=== PATIENT | male | born 1965 ===

== ENCOUNTER 2018-10-03 13:43 | Inpatient (IN) | payer BC ==
[~2018-10-03] VITALS: Ht 213.4 cm; Wt 122.5 kg
--- OUTSIDE RECORDS SUMMARY | 2018-10-03 20:27 | XMS REPORT ---
Author Author [facility] Address Unknown Phone Unavailable Care Team Providers Care Graphic Designer Name Role Phone JANINA CARRILLO Unavailable Unavailable Cristian RIVERS Unavailable Unavailable Cesar MORA Unavailable Unavailable Problems This patient has no known problems. Allergies, Adverse Reactions, Alerts This patient has no known allergies or adverse reactions. Medications This patient has no known medications. Results Test Description Test Time Test Comments Text Results Atomic Results Result Comments CHEST XRAY LINE PLACEMENT 2018-04-30 17:34:00 [place] [address] Patient Name: JOCY CARRANZA JR MR #: [id number] : 1965 Age/Sex: 52/M Req #: [id number] Adm Physician: Ordered by: JANINA CARRILLO MD Report #: [id number] Location: DX Room/Bed: Procedure: [id number] DX/CHEST XRAY LINE PLACEMENT Exam Date: 04/30/18 Exam Time: 1709 REPORT STATUS: Signed EXAMINATION: CHEST XRAY LINE PLACEMENT INDICATION: Line placement. COMPARISON: None FINDINGS: AP view TUBES and LINES: Interval placement of left-sided PICC with tip at the cavoatrial junction. LUNGS/PLEURA: The lungs are clear. No pleural effusion or pneumothorax. HEART AND MEDIASTINUM: Borderline enlarged cardiac silhouette. BONES AND SOFT TISSUES: No acute osseous lesion. Soft tissues are unremarkable. UPPER ABDOMEN: No free air under the diaphragm. IMPRESSION: No acute thoracic abnormality. Left-sided PICC at the cavoatrial junction. Signed by: Maco Starr MD on 04/30/2018 5:35 PM Dictated By: SIMONA STARR MD 34 Transcribed By: RONDA on 04/30/181734 COPY TO: JANINA CARRILLO MD CHEST 2 VIEWS 2017-11-28 10:02:00 [place] [address] Patient Name: JOCY CARRANZA MR #: [id number] : 1965 Age/Sex: 51/M Req #: [id number] Adm Physician: Ordered by: DONOVAN RIVERS DPM Report #: [id number] Location: [facility] Room/Bed: Procedure: [id number] DX/CHEST 2 VIEWS Exam Date: Exam Time: REPORT STATUS: Signed PROCEDURE: Frontal and lateral views of the chest. COMPARISON: Chest radiograph 09/22/17. INDICATIONS: PRE OP HYPERBARIC CHAMBER TREATMENT FINDINGS: Lines/tubes: Left sided PICC Terminates in the expected location of the cavoatrial junction. Lungs: The lungs are well inflated and clear. There is no evidence of pneumonia or pulmonary edema. Pleura: There is no pleural effusion or pneumothorax. Heart and medias tinum: The cardiomediastinal silhouette is unremarkable. Bones: No acute bony abnormality. IMPRESSION: No acute radiographic abnormality. Dictated by: ISRAEL DEAN M.D. on 11/28/2017 at 10:01 Electronically approved by: ISRAEL DEAN M.D. on 11/28/2017 at 10:01 Dictated By: ISRAEL DEAN MD 1002 Transcribed By: LAKESHA on 11/28/17 1002 COPY TO: DONOVAN RIVERS DPCarmina MRI FOOT RIGHT WOW 2017-11-22 14:58:00 [facility] [address] [address] Patient Name: JOCY CARRANZA JR MR #: [id number] : 1965 Age/Sex: 51/M Req #: [id number] Adm Physician: Ordered by: JANINA CARRILLO MD Report #: [id number] Location: MRI Room/Bed: Procedure: [id number] MRI/MRI FOOT RIGHT WOW Exam Date: Exam Time: REPORT STATUS: Signed MRI of the right foot with and without contrast. History: Osteomyelitis. Lateral foot pain. Infection. Decreased range of motion. Technique: Multiplanar multisequence MRI of the foot after the administration of 20 cc intra-articular gadolinium contrast material. Comparison: September 22, 2017 Findings: Soft tissue ulceration and postsurgical change of the lateral forefoot. Osteomyelitis of the remaining fifth metatarsal. Additionally, there is abnormal bone marrow edema involving the fifth toe best seen on series 6 image 9 through 12 worrisome for osteomyelitis. Mild bone marrow edema in the cuboid bone, proximal and distal fourth metatarsal could be stress related. Prior amputation across the second through fourth metatarsophalangeal joints. Small soft tissue phlegmon at the lateral aspect of the foot at the level of the distal residual fifth metatarsal Diffuse soft tissue edema and atrophy of the musculature. IMPRESSION: Osteomyelitis of the remaining portion of the fifth metatarsal and fifth toe. Bone marrow edema in the cuboid bone, proximal and distal fourth metatarsal could be stress related. Signed by: Dr. Robby Carrera M.D. on 3:07 PM Dictated By: ROBBY CARRERA MD, MD 06 Transcribed By: RONDA on 11/22/171506 COPY TO: JANINA CARRILLO MD MRI FOOT RIGHT WOW 2017-09-22 12:36:00 [place] [address] Patient Name: JOCY CARRANZA MR #: [id number] : 1965 Age/Sex: 51/M Req #: [id number] [facility] Physician: BIANCA MORA MD Ordered by: JANINA CARRILLO MD Report #: [id number] Location: [facility] Room/Bed: [place] [address] Procedure: [id number] MRI/MRI FOOT RIGHT WOW Exam Date: Exam Time: REPORT STATUS: Signed TECHNIQUE: Magnetic resonance imaging of the RIGHT foot was performed without and with injected contrast. 20 mL of MultiHance HISTORY: Pain, evaluate for infection COMPARISON: None available. DISCUSSION: Soft tissue ulceration of the lateral forefoot. Osteomyelitis of the fifth toe involving the phalanges and metatarsal. Probable prior amputation of the fifth metacarpal head. Probable osteomyelitis involving the lateral cuboid. Prior amputation across the second through fourth metatarsophalangeal joints. Small soft tissue abscess around the fifth metatarsal short axis image 11. Diffuse soft tissue edema and atrophy of the musculature. IMPRESSION: Osteomyelitis of the fifth toe involving the metatarsal and phalanges. Probable osteomyelitis of the late ral cuboid. Signed by: Dr. Derrick Reeves M.D. on 09/22/2017 12:40 PM Dictated By: DERRICK REEVES MD 39 Transcribed By: RONDA on 09/22/171239 COPY TO: JANINA CARRILLO MD CHEST XRAY LINE PLACEMENT 2017-09-22 01:58:00 [facility] [address] [place] [address] Patient Name: JOCY CARRANZA MR #: [id number] : 1965 Age/Sex: 51/M Req #: [id number] Adm Physician: BIANCA MORA MD Ordered by: JANINA CARRILLO MD Report #: [id number] Location: [facility] Room/Bed: [place] [address] Procedure: [id number] DX/CHEST XRAY LINE PLACEMENT Exam Date: 09/22/17 Exam Time: 0040 REPORT STATUS: Signed EXAM: CHEST XRAY LINE PLACEMENT, AP 1 view INDICATION: Line placement COMPARISON: PA and lateral view of the chest October 01, 2017 at 2139 hours FINDINGS: LINES/TUBES: Interval placement of left approach PICC with tip terminating at the expected location of the atriocaval junction. LUNGS: No consolidations or edema. PLEURA: No effusions or pneumothorax. HEART AND MEDIASTINUM: Normal size and contour. BONES AND SOFT TISSUES: No acute findings. IMPRESSION: Interval placement of left approach PICC with tip terminating at the expected location of the atriocaval junction. Signed by: Dr. Matias Mcmillan M.D. on 09/22/2017 1:59 AM Dictated By: MATIAS MCMILLAN MD 8 Transcribed By: RONDA on 09/22/17158 COPY TO: JANINA CARRILLO MD CHEST 2 VIEWS 2017-09-21 22:11:00 [facility] [address] [address] Patient Name: JOCY CARRANZA MR #: [id number] : 1965 Age/Sex: 51/M Req #: [id number] Adm Physician: BIANCA MORA MD Ordered by: DONOVAN RIVERS DPM Report #: [id number] Location: [facility] Room/Bed: [place] [address] Procedure: [id number] DX/CHEST 2 VIEWS Exam Date: 09/21/17 Exam Time: 2139 REPORT STATUS: Signed EXAM: CHEST 2 VIEWS, PA and lateral INDICATION: Foot ulcers COMPARISON: None FINDINGS: LINES/TUBES: None LUNGS: No consolidations or edema. PLEURA: No effusions or pneumothorax. HEART AND MEDIASTINUM: Normal size and contour. BONES AND SOFT TISSUES: No acute findings. IMPRESSION: No acute thoracic abnormality. Signed by: Dr. Matias Mcmillan M.D. on 09/21/2017 10:12 PM Dictated By: MATIAS MCMILLAN MD 11 Transcribed By: RONDA on 09/21/172211 COPY TO: DONOVAN RIVERS DPM FOOT RIGHT COMPLETE 2017-09-21 22:09:00 [place] [address] Patient Name: JOCY CARRANZA MR #: [id number] : 1965 Age/Sex: 51/M Req #: [id number] Adm Physician: BIANCA MORA MD Ordered by: DONOVAN RIVERSM Report #: [id number] Location: [facility] Room/Bed: [place] [address] Procedure: [id number] DX/FOOT RIGHT COMPLETE Exam Date: 09/21/17 Exam Time: 2139 REPORT STATUS: Signed EXAM: FOOT RIGHT COMPLETE, AP, lateral and oblique INDICATION: Ulcer, lateral aspect COMPARISON: Left foot x-ray July 08, 2017 FINDINGS: BONES: Interval destruction of the head of the fifth digit metatarsal with permeative pattern throughout the residual metatarsal and periosteal reaction. Additional erosion at the base of the fifth digit proximal phalanx. Prior surgical amputation through the second, third and fourth metatarsal interphalangeal joints. JOINTS: No malalignment. SOFT TISSUES: Soft tissue swelling of the forefoot. IMPRESSION: Osteomyelitis involving the fifth metatarsal and base of the fifth proximal phalanx. Signed by: Dr. Matias Mcmillan M.D. on 09/21/2017 10:11 PM Dictated By: MATIAS MCMILLAN MD 10 Transcribed By: RONDA on 09/21/172210 COPY TO: DONOVAN RIVERS DPM FOOT LEFT COMPLETE 2017-09-21 22:07:00 [place] [address] Patient Name: JOCY CARRANZA MR #: [id number] : 1965 Age/Sex: 51/M Req #: [id number] Adm Physician: BIANCA MORA MD Ordered by: DONOVAN RIVERS DPM Report #: [id number] Location: [facility] Room/Bed: [place] [address] Procedure: [id number] DX/FOOT LEFT COMPLETE Exam Date: 09/21/17 Exam Time: 2139 REPORT STATUS: Signed EXAM: FOOT LEFT COMPLETE, AP, lateral and oblique INDICATION: Ulcers, left foot big toe COMPARISON: Left foot x-ray July 08, 2017 FINDINGS: BONES: No acute fractures. Chronic deformity of the second and third digit distal phalanges. JOINTS: No malalignment. SOFT TISSUES: Soft tissue swelling of the first digit and ulcer at the plantar base of the distal interphalangeal joint. IMPRESSION: No radiographic evidence of acute osteomyelitis. Signed by: Dr. Matias Mcmillan M.D. on 09/21/2017 10:09 PM Dictated By: MATIAS MCMILLAN MD 08 Transcribed By: RONDA on 09/21/172208 COPY TO: DONOVAN RIVERS DPM CHEST XRAY LINE PLACEMENT 2017-08-04 18:12:00 [place] [address] Patient Name: JOCY CARRANZA MR #: [id number] : 1965 Age/Sex: 51/M Req #: [id number] Adm Physician: Ordered by: JANINA CARRILLO MD Report #: [id number] Location: DX Room/Bed: Procedure: [id number] DX/CHEST XRAY LINE PLACEMENT Exam Date: Exam Time: REPORT STATUS: Signed PROCEDURE: A single AP view of the chest. COMPARISON: [facility], DX, CHEST XRAY LINE PLACEMENT, 07/07/2017, 21:50. INDICATIONS: picc line placement today FINDINGS: See impression. IMPRESSION: 1. right-sided PICC line has distal tip projecting approximately in the mid SVC. 2. Clear lungs. Mildly prominent cardiac silhouette, which may be partly due to portable AP projection. Pulmonary vasculature is normal. 3. No acute bony abnormalities Alli Jordan M.D. Dictated by: Alli Jordan M.D. on 08/04/2017 at 18:12 Electronically approved by: Alli Jordan M.D. on 08/04/2017 at 18:12 Dictated By: ALLI JORDAN MD 11 Transcribed By: LAKESHA on 08/04/171811 COPY TO: JANINA CARRILLO MD MRI FOOT RIGHT WOW [place] [address] Patient Name: JOCY CARRANZA MR #: [id number] : 1965 Age/Sex: 51/M Req #: [id number] [facility] Physician: BIANCA MORA MD Ordered by: BIANCA MORA MD Report #: [id number] Location: MED/[facility] Room/Bed: [facility] Procedure: [id number] MRI/MRI FOOT RIGHT WOW Exam Date: Exam Time: REPORT STATUS: Signed TECHNIQUE: Magnetic resonance imaging of the RIGHT foot (forefoot) was performed WITH injected contrast, 20 cc of MultiHance. HISTORY: Infection, lateral side, query osteomyelitis COMPARISON: Right foot radiographs July 08, 2017 DISCUSSION: Bone: Status post amputation of the second through fourth digits at the level of the metatarsophalangeal joints. Bone marrow edema involving the distal half of the fifth metatarsal bone and fifth proximal phalanx, most notably the head of the fifth metatarsal bone. Corresponding mild confluent decreased fatty marrow signal involving the head of the fifth metatarsal bone. No acute fracture or osteonecrosis. Joints: No dislocation. Trace nonspecific fifth metatarsophalangeal joint effusion. Soft Tissues: A lateral soft tissue defect, overlying the head of the fifth metatarsal bone. Associated granulation tissue or scarring, without a discrete drainable fluid collection. Prominent regional soft tissue edema. IMPRESSION: 1. Osteomyelitis involving the head of the fifth metatarsal bone. 2. Nonspecific reactive bone marrow edema involving the distal half of the fifth metatarsal bone and fifth proximal phalanx. 3. Trace nonspecific fifth metatarsophalangeal joint effusion. 4. No drainable soft tissue abscess. Signed by: Jia FinnOMissy, M.M.M. on 07/11/2017 7:50 AM Dictated By: DOUGLAS SINHA DO 9 Transcribed By: RONDA on 07/11/17 075 COPY TO: BIANCA MORA MD FOOT LEFT COMPLETE [place] [address] Patient Name: JOCY CARRANZA MR #: [id number] : 1965 Age/Sex: 51/M Req #: [id number] Adm Physician: BIANCA MORA MD Ordered by: VANDANA GABRIEL DPM Report #: [id number] Location: [facility] Room/Bed: [facility] Procedure: [id number] DX/FOOT LEFT COMPLETE Exam Date: 07/08/17 Exam Time: 1754 REPORT STATUS: Signed EXAM: FOOT LEFT COMPLETE, AP, lateral and oblique INDICATION: Osteomyelitis bilateral feet COMPARISON: None FINDINGS: BONES: No acute fractures. Prior amputation through the second and third distal phalanges. JOINTS: No malalignment. SOFT TISSUES: Normal IMPRESSION: No radiographic evidence of osteomyelitis. Signed by: Dr. Matias Mcmillan M.D. on 07/08/2017 8:05 PM Dictated By: MATIAS MCMILLAN MD 04 Transcribed By: RONDA on 07/08/172004 COPY TO: VANDANA GABRIEL DPM FOOT RIGHT COMPLETE [place] [address] Patient Name: JOCY CARRANZA MR #: [id number] : 1965 Age/Sex: 51/M Req #: [id number] Adm Physician: BIANCA MORA MD Ordered by: VANDANA GABRIEL DPCarmina Report #: [id number] Location: [facility] Room/Bed: [facility] Procedure: [id number] DX/FOOT RIGHT COMPLETE Exam Date: 07/08/17 Exam Time: 175 REPORT STATUS: Signed EXAM: FOOT RIGHT COMPLETE, AP, lateral and oblique INDICATION: Osteomyelitis COMPARISON: None FINDINGS: BONES: No acute fractures. Prior amputation of the second, third and fourth metatarsal interphalangeal joints. JOINTS: No malalignment. SOFT TISSUES: Soft tissues on of the foot IMPRESSION: No radiographic evidence of osteomyelitis. Signed by: Dr. Matias Mcmillan M.D. on 07/08/2017 8:06 PM Dictated By: MATIAS MCMILLAN MD 05 Transcribed By: RONDA on 07/08/172005 COPY TO: VANDANA GABRIEL DPCarmina CHEST XRAY LINE PLACEMENT [place] [address] Patient Name: JOCY CARRANZA MR #: [id number] : 1965 Age/Sex: 51/M Req #: [id number] Adm Physician: BIANCA MORA MD Ordered by: BIANCA MORA MD Report #: [id number] Location: [facility] Room/Bed: [facility] Procedure: [id number] DX/CHEST XRAY LINE PLACEMENT Exam Date: Exam Time: REPORT STATUS: Signed EXAM: CHEST XRAY LINE PLACEMENT, AP 1 view INDICATION: PICC placement COMPARISON: None FINDINGS: LINES/TUBES: Tip of left approach PICC terminates in expected location of the mid superior vena cava. LUNGS: No consolidations or edema. PLEURA: No effusions or pneumothorax. HEART AND MEDIASTINUM: Normal size and contour. BONES AND SOFT TISSUES: No acute findings. IMPRESSION: Tip of left approach PICC terminates in expected location of the mid superior vena cava. Signed by: Dr. Matias Mcmillan M.D. on 07/07/2017 10:01 PM Dictated By: MATIAS MCMILLAN MD 00 Transcribed By: RONDA on 07/07/172200 COPY TO: BIANCA MORA MD MRI FOOT LEFT WOW [address], [place], [place] [address] Patient Name: JOCY CARRANZA MR #: [id number] : 1965 Age/Sex: 51/M Req #: [id number] [facility] Physician: BIANCA MORA MD Ordered by: BAINCA MORA MD Report #: [id number] Location: [facility] Room/Bed: [facility] Procedure: [id number] MRI/MRI FOOT LEFT WOW Exam Date: Exam Time: REPORT STATUS: Signed TECHNIQUE: Magnetic resonance imaging of the LEFT foot (forefoot) was performed WITH and WITHOUT injected contrast, 20 cc of intravenous MultiHance. HISTORY: Ulcer great toe, rule out osteomyelitis COMPARISON: Left foot radiographs July 08, 2017 DISCUSSION: Bone: Bone marrow edema and corresponding confluence decreased fatty marrow signal involving the distal aspect of the first proximal phalanx and the first distal phalanx. Subtle oblique linear hypointensity at the distal aspect of the first proximal phalanx, this could reflect the age-indeterminate sequela of a nondisplaced fracture. Joints: No dislocation. Small nonspecific effusion involving the first interphalangeal joint and trace nonspecific effusion of the first metatarsophalangeal joint. Soft Tissues: Soft tissue defect at the plantar and medial aspect of the great toe. Nonspecific soft tissue edema, most notably the dorsal aspect of the foot. IMPRESSION: 1. Osteomyelitis involving the distal aspect of the first proximal phalanx and the first distal phalanx of the great toe. Given this distribution and the small nonspecific first interphalangeal joint effusion, these findings are concerning for potential associated septic arthropathy. 2. No soft tissue abscess. 3. Questionable sequela of an age-indeterminate, nondisplaced fracture involving the distal aspect of the first proximal phalanx. A preliminary report was provided by Dr. Castañeda on July 07, 2017 at 1803 hours. Signed by: Dr. Douglas Sinha D.O., M.M.M. on 07/11/2017 8:05 AM Dictated By: DOUGLAS SINHA DO 4 Transcribed By: RONDA on 07/11/17804 COPY TO: BIANCA MORA MD
--- NOTE | 2018-10-03 20:30 | NUR ---
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
[2018-10-03 20:50] VITALS: BP 138/77
[2018-10-03 21:00] VITALS: BP 130/74
[2018-10-03 21:22] LABS: BASOPHILS % 0.2 % (0.0-1.0); EOSINOPHILS # (AUTO) 0.1 (0.0-0.4); EOSINOPHILS % 0.6 % (0.0-6.0); HEMATOCRIT 33.5 % (38.2-49.6); HEMOGLOBIN 10.8 g/dL (14.0-18.0); LYMPHOCYTES # (AUTO) 1.6 (1.0-3.2); LYMPHOCYTES % 16.8 % (18.0-39.1); MEAN CORPUSCULAR HEMOGLOBIN 28.1 pg (28-32); MEAN CORPUSCULAR HGB CONC 32.2 g/dL (31-35); MEAN CORPUSCULAR VOLUME 87.2 fL (81-99); MONOCYTES # (AUTO) 0.7 (0.2-0.8); MONOCYTES % 6.8 % (4.4-11.3); NEUTROPHILS # (AUTO) 7.2 (2.1-6.9); NEUTROPHILS % 75.4 % (38.7-80.0); PLATELET COUNT 283 x10e3/uL (140-360); RED BLOOD COUNT 3.84 x10e6/uL (4.3-5.7); RED CELL DISTRIBUTION WIDTH 13.1 % (11.7-14.4)
[2018-10-03 21:25] VITALS: BP 138/77
[2018-10-03 21:42] LABS: ALANINE AMINOTRANSFERASE 9 IU/L (0-55); ALBUMIN 3.3 g/dL (3.5-5.0); ALKALINE PHOSPHATASE 79 IU/L (40-150); ANION GAP 12.5 mmol/L (8-16); BLOOD UREA NITROGEN 17 mg/dL (7-26); BUN/CREATININE RATIO 20 (6-25); CALCIUM 8.9 mg/dL (8.4-10.2); CARBON DIOXIDE 23 mmol/L (22-29); CHLORIDE 103 mmol/L (98-107); CREATININE, SERUM 0.84 mg/dL (0.72-1.25); EST GLOMERULAR FILTRATION RATE > 60 ML/MIN (60-); GLUCOSE 162 mg/dL (74-118); POTASSIUM 3.5 mmol/L (3.5-5.1); SODIUM 135 mmol/L (136-145)
[2018-10-03] MEDS ORDERED: ONDANSETRON HCL INJ 2MG/ML 2ML 2 MG/ML VIAL IV PRN (23:30)
[2018-10-03] MEDS ORDERED: ACETAMINOPHEN 325 MG TAB PO PRN (23:30)
[2018-10-03] MEDS ORDERED: HYDROCODONE/APAP 5MG-325MG TAB PO PRN (23:30)
[2018-10-03] MEDS: SODIUM CHLORIDE 0.9% IV SCH (23:48)
[2018-10-03] MEDS: MEROPENEM 1GM 100 ML IV SCH (23:48)
[2018-10-03] MEDS: DAPTOMYCIN IV SCH (23:48)
[2018-10-03] MEDS: SODIUM CHLORIDE 0.9% 1000ML 1,000 ML IV SCH (23:48)
[2018-10-04] VITALS (8 sets, daily range): BP systolic 137–156; BP diastolic 67–84
--- NOTE | 2018-10-04 01:45 | NUR ---
patient received picc line, was confirmed by xray.
--- NOTE | 2018-10-04 03:45 | Diagnostic Imaging Report ---
EXAMINATION: CHEST XRAY LINE PLACEMENT INDICATION: PICC placement COMPARISON: None FINDINGS: AP view TUBES and LINES: Left upper extremity PICC tip terminates in the cavoatrial junction.. LUNGS: Lungs are well inflated. Lungs are clear. There is no evidence of pneumonia or pulmonary edema. PLEURA: No pleural effusion or pneumothorax. HEART/MEDIASTINUM: Borderline cardiomegaly. BONES AND SOFT TISSUES: No acute osseous lesion. Soft tissues are unremarkable. UPPER ABDOMEN: No free air under the diaphragm. IMPRESSION: Left upper extremity PICC tip terminates in the cavoatrial junction. Borderline cardiomegaly. Signed by: Joseph Love DO on 10/04/2018 3:41 AM
[2018-10-04] MEDS: MEROPENEM 1GM 100 ML IV SCH ×3 (06:23→22:09)
[2018-10-04 06:31] LABS: BASOPHILS % 0.3 % (0.0-1.0); EOSINOPHILS # (AUTO) 0.1 (0.0-0.4); HEMOGLOBIN 10.5 g/dL (14.0-18.0); LYMPHOCYTES # (AUTO) 1.4 (1.0-3.2); LYMPHOCYTES % 18.1 % (18.0-39.1); MEAN CORPUSCULAR HEMOGLOBIN 27.4 pg (28-32); MEAN CORPUSCULAR HGB CONC 30.9 g/dL (31-35); MEAN CORPUSCULAR VOLUME 88.8 fL (81-99); MONOCYTES # (AUTO) 0.6 (0.2-0.8); NEUTROPHILS # (AUTO) 5.8 (2.1-6.9); NEUTROPHILS % 73.1 % (38.7-80.0); PLATELET COUNT 242 x10e3/uL (140-360); RED BLOOD COUNT 3.83 x10e6/uL (4.3-5.7)
[2018-10-04 06:40] LABS: ANION GAP 9.7 mmol/L (8-16); BLOOD UREA NITROGEN 13 mg/dL (7-26); BUN/CREATININE RATIO 17 (6-25); CALCIUM 8.6 mg/dL (8.4-10.2); CARBON DIOXIDE 24 mmol/L (22-29); CHLORIDE 103 mmol/L (98-107); CREATININE, SERUM 0.75 mg/dL (0.72-1.25); EST GLOMERULAR FILTRATION RATE > 60 ML/MIN (60-); GLUCOSE 99 mg/dL (74-118); POTASSIUM 3.7 mmol/L (3.5-5.1); SODIUM 133 mmol/L (136-145)
--- NOTE | 2018-10-04 07:10 | NUR ---
patient endorsed to next shift for continuity of care.
[2018-10-04] MEDS ORDERED: MICARDIS40 MG PO (10:42)
[2018-10-04] MEDS ORDERED: ASPIRIN EC81 MG PO (10:43)
--- NOTE | 2018-10-04 12:05 | History and Physical ---
CHIEF COMPLAINT: Left big toe concerns for osteomyelitis. HISTORY OF PRESENT ILLNESS: A 52-year-old male, morbidly obese with history of hypertension only, who presented as a direct admission from the Podiatry Clinic for an insertion of a PICC line. Further evaluation and management of the left big toe for concerns for underlying osteomyelitis. The patient reports he has been dealing with his big toe on the left foot for a significant period of time. Of note, he went and saw his project planner yesterday. He had some debridement and was sent straight to the Infectious Disease Clinic. At that time, he came in for further management and care and to be have further evaluated. He reports that he has had peripheral neuropathy, which is idiopathic in nature. He denies any history of diabetes. He has had multiple amputations on the right foot toes. The patient was seen and evaluated at bedside on the medical floor. He is currently doing well with no other issues. He has already had a PICC line in left upper extremity. Vital signs stable when I evaluated him. REVIEW OF SYSTEMS: Pertinent positives: Left foot, left big toe concerns for osteomyelitis with infection. Pertinent negatives: Denies any chest pain, palpitation, nausea, vomiting, diarrhea, dysuria, hematuria, frequency, urgency, lightheadedness, dizziness, abdominal pain, headaches, shortness of breath, cough, congestion, fever, or any other complaints. The rest of the 14-point review of systems have been reviewed with the patient and are negative. ALLERGIES: TO LISINOPRIL. HOME MEDICATIONS: None. PAST MEDICAL HISTORY: He has had multiple osteomyelitis of the toes with amputations on the right foot. He has now concerns for left big toe osteomyelitis, history of hypertension, morbidly obese. PAST SURGICAL HISTORY: Amputations on the right foot 2nd, 3rd and 4th toe. He has had local debridements on the left foot as well by Podiatry. FAMILY HISTORY: Hypertension and diabetes. SOCIAL HISTORY: No drugs. No alcohol. Does not smoke. Good social support. PHYSICAL EXAMINATION: VITAL SIGNS: Temperature is 96.9, pulse 79, respiratory rate is 18, blood pressure 142/78, and pulse ox 97% on room air. GENERAL: Not in acute distress. Alert and oriented x3. Cooperative on examination. HEENT: Head; normocephalic, atraumatic. Eyes; pupils are equal, round, and reactive to light bilaterally. Extraocular movements intact bilaterally. Throat; no evidence of erythema or exudates in the posterior pharynx. Has poor dentition. NECK: Supple. Good range of motion. PULMONARY: Clear to auscultation bilaterally. No wheezing, no rales, no rhonchi, no crackles appreciated. CARDIOVASCULAR: Positive S1 and S2. No murmurs, rubs, or gallops appreciated. ABDOMEN: Soft, nondistended, and nontender to palpation. Bowel sounds present. MUSCULOSKELETAL: Strength is 5/5 throughout. No evidence of any muscle deficits on examination. No weakness appreciated. NEUROLOGIC: Cranial nerves II through XII grossly intact. No evidence of any neurological deficits on exam. SKIN: Intact. Warm to touch. Good cap refill. PSYCHIATRIC: Normal affect and mood. EXTREMITIES: No edema. Good range of motion throughout. Right foot toes 2, 3, and 4 are amputated. Left foot, left big toe has an ulceration with questionable discharge appreciated. LABORATORY FINDINGS: Show white count 7.9, hemoglobin 10.5, hematocrit is 34, and platelets of 242. Chemistry; sodium 133, potassium 3.7, chloride 103, bicarb 24, anion gap of 9.7, BUN 13, creatinine is 0.75, glucose is 99, and calcium is 8.6. LFTs within normal range. CRP is pending. Albumin is 3.3. IMAGING STUDIES: There is a chest x-ray post PICC line that shows that the PICC line terminates in the cavoatrial junction in the left upper extremity. He is otherwise doing well. Borderline cardiomegaly. IMPRESSION: 1. Left big toe wound infection, concerns for underlying osteomyelitis. 2. Idiopathic peripheral neuropathy. 3. Hypertension. 4. History of right foot toe amputations due to peripheral neuropathy and infection. 5. Left lower extremity swelling. PLAN: At this time, the patient was admitted for further evaluation and care. MRI of the left foot has been ordered to evaluate for osteomyelitis. A PICC line has been placed in the left upper extremity. At this time, the patient is on IV daptomycin and Merrem, and ID is consulted. I will go ahead and order venous Doppler of the left lower extremity to rule out DVT as well. He reports that his left lower extremity is more swollen than usual and like to have that further evaluated. At this time, we will need to await for imaging studies to determine if this is osteomyelitis or not. Continue with same plan of care with no changes. We will go ahead and put him on Lovenox for DVT prophylaxis. MD ADAMA Boudreaux/ALIYAH /[id number]
[2018-10-04] MEDS: TELMISARTAN 40 MG TAB PO SCH (13:30)
[2018-10-04] MEDS: SODIUM CHLORIDE 0.9% 1000ML 1,000 ML IV SCH (13:30)
[2018-10-04] MEDS: ASPIRIN 81 MG ENTERIC COATED PO SCH (13:30)
[2018-10-04] MEDS ORDERED: GADOBENATE DIMEGLUMINE 1 ML IV ONE (14:24)
--- NOTE | 2018-10-04 14:41 | NUR ---
WOUND CARE CONSULTATION: THIS IS A 52 YEAR OLD MALE PATIENT ADMITTED TO [facility] FOR OSTEOMYELITIS OF RIGHT FOOT. HEAD TO TOE SKIN ASSESSMENT PERFORMED. PATIENT HAS A AGUILAR 2 DIABETIC ULCER TO THE RIGHT PLANTAR FOOT MEASURING 0.8X0.5X0.2CM, PINK GRANULATION TO BED WITH CALLUS PERIWOUND. PATIENT HAS A LEFT HALLUX PLANTAR SURFACE AGUILAR 2 DIABETIC ULCER MEASURING 1.3X2.5X0.3CM, 80% SLOUGH AND 20% RED GRANULATION TO WOUND BED. PATIENT HAS A LEFT HEEL STABLE ESCHAR MEASURING 0.7X0.4CM. PATIENT HAS MACERATION NOTED TO THE WEB SPACE BETWEEN THE LEFT 1ST MET HEAD AND THE LEFT 2ND MET HEAD; SKIN INTACT. PALPABLE PULSES NOTED TO THE LEFT AND RIGHT DP. LEFT AND RIGHT PT UNABLE TO PALPATE. PATIENT IS KNOWN TO OUR [facility] A PREVIOUS PATIENT. DR. RIVERS IS THE PATIENT'S PODIATRISTS OUTPATIENT. PATIENT HAS A FOLLOW UP APPOINTMENT WITH DR. RIVERS IN [address] CARRILLO IS FOLLOWING PATIENT I & D INPATIENT AND OUTPATIENT. PATIENT HAS HEALED SCARS FROM PREVIOUS AMPUTATIONS NOTED TO THE RIGHT 2ND, 3RD, AND 4TH METATARSAL. LABS: WBC7.91 ALB3.3 ESR50 MRI RIGHT FOOT = PENDING VENOUS DUPLEX BLE = PENDING MEDICATIONS: MEROPENEM DAPTOMYCIN RECOMMENDATION: -APPLY ALTERNATING PRESSURE RELIEF MATTRESS. -APPLY BILATERAL HEEL PROTECTORS WITH PILLOW SUSPENSION. -ENCOURAGE PATIENT TO TURN EVERY 2 HOURS. -NURSING TO CLEAN RIGHT PLANTAR FOOT AGUILAR 2 DIABETIC ULCER AND LEFT HEEL STABLE ESCHAR WITH NORMAL SALINE, PAT DRY, APPLY BETADINE, 4X4 GAUZE, KERLIX; CHANGE DAILY AND PRN. -NURSING TO CLEAN LEFT HALLUX PLANTAR SURFACE AGUILAR 2 DIABETIC ULCER WITH NORMAL SALINE, PAT DRY, APPLY NICKEL THICKNESS OF SANTYL, THEN SERENITY SALINE MOISTENED 4X4 GAUZE, KERLIX; CHANGE DAILY AND PRN. -NURSING TO CLEAN WEB SPACE BETWEEN LEFT FIRST MET HEAD AND LEFT SECOND MET HEAD WITH SOAP AND WATER, PAT DRY, APPLY MAXORB AG BETWEEN THE TOES, THEN COVER WITH 4X4; CHANGE DAILY AND PRN. THANK YOU FOR THIS WOUND CARE CONSULT. Addendum: 10/04/18 at 1502 by Nancie Gipson RN Amended: Links added.
[2018-10-04] MEDS ORDERED: ONDANSETRON HCL 4 MG ORAL DISINTEGRATING TAB PO PRN (16:15)
--- NOTE | 2018-10-04 16:41 | NUR ---
RCD PT FROM OBS BY WHEEL CHAIR PT IS ALERT AND ORIENTED VITALS CHECKED PT RESTING ON BED BED LOW AND LOCKED CALL LIGHT IN REACH
[2018-10-04] MEDS: ENOXAPARIN SOD INJ 40 MG/0.4 ML SYR SC SCH (17:00)
--- NOTE | 2018-10-04 18:39 | NUR ---
PT RESTING ON BED BED SIDE REPORT GIVEN TO THE ONCOMING NURSE
[2018-10-04] MEDS: DAPTOMYCIN IV SCH (21:38)
[2018-10-04] MEDS: SODIUM CHLORIDE 0.9% IV SCH (21:38)
--- NOTE | 2018-10-04 23:33 | Consultation ---
DATE OF CONSULTATION: REASON FOR CONSULTATION: Osteomyelitis of the left foot, failing oral antibiotics, failing IV antibiotics. HISTORY OF PRESENT ILLNESS: Thank you so much for seeing this patient. This patient who is a very pleasant 52-year-old white male known to me with history of obesity, diabetes mellitus, hypertension, and neuropathy. The patient was recently diagnosed with osteomyelitis of his left foot. He was given IV antibiotic with improvement for extended periods of time. He switched to oral antibiotic for another 3-4 weeks. He started antibiotic about 10 days ago and doing a followup to his optical laboratory technician, Dr. Davila. He started to have redness and swollen in his foot going from the toe all the way to his mid foot. The patient denies history of trauma. The patient apparently went to see his optical laboratory technician who referred him to me. I did see him in my office, the leg was quite red and swollen, so I asked him to come to the hospital for IV antibiotic and further workup. The patient is being admitted. He also was feeling a little bit feverish with chills, not feeling well in general with increased pain and swelling in the foot. He is frustrated because he was just doing well until recently and he had as mentioned above an extended course of antibiotic IV and then oral, he just finished that just recently. PAST MEDICAL HISTORY: Obesity, hypertension, neuropathy. PAST SURGICAL HISTORY: Debridement on the feet. ALLERGIES: NKA. SOCIAL HISTORY: There is no smoking, drug abuse, or alcohol abuse. FAMILY HISTORY: Unremarkable. REVIEW OF SYSTEMS: HEENT: There is no headache, visual changes or hearing. GI: There is no nausea. No vomiting. No diarrhea. CARDIAC: There is no arrhythmia. NEURO: No seizure activity. SKIN: He denies any. The patient has been before on meropenem and vancomycin, we had to change to meropenem and daptomycin daily, then we changed to doxycycline and ciprofloxacin. PHYSICAL EXAMINATION: GENERAL: He is currently alert, oriented, does not seem to be in acute distress. VITAL SIGNS: Stable, currently afebrile. HEENT: He is not icteric. NECK: Supple. CHEST: Clear. HEART: S1, S2. No murmur. ABDOMEN: Soft. Bowel sounds present. No tenderness. EXTREMITIES: There is erythema, there is edema from the left foot as mentioned above. IMPRESSION: Cellulitis of the leg, concerned about recurrence of the osteo, concerned about the abscess, concerned about failure of medical treatment. He was just on extended course of antibiotic as mentioned above. PLAN: The plan is to put him in, started on IV daptomycin and meropenem since he has been on extended course of antibiotic. We will obtain an MRI. Obtain vascular workup. Discussed with the patient. Discussed with Internal Medicine. We will follow. Further recommendations depending on the above finding. MD SAMANTHA Brown/MODChioma /[id number]
[2018-10-05] VITALS (8 sets, daily range): BP systolic 141–164; BP diastolic 68–99
[2018-10-05] MEDS: SODIUM CHLORIDE 0.9% 1000ML 1,000 ML IV SCH ×2 (01:10→15:30)
[2018-10-05] MEDS: MEROPENEM 1GM 100 ML IV SCH ×2 (05:14→14:00)
[2018-10-05 05:37] LABS: BASOPHILS % 0.3 % (0.0-1.0); EOSINOPHILS # (AUTO) 0.1 (0.0-0.4); EOSINOPHILS % 1.8 % (0.0-6.0); HEMATOCRIT 33.7 % (38.2-49.6); HEMOGLOBIN 10.7 g/dL (14.0-18.0); LYMPHOCYTES # (AUTO) 1.1 (1.0-3.2); MEAN CORPUSCULAR HEMOGLOBIN 27.9 pg (28-32); MEAN CORPUSCULAR HGB CONC 31.8 g/dL (31-35); MONOCYTES # (AUTO) 0.4 (0.2-0.8); MONOCYTES % 6.9 % (4.4-11.3); NEUTROPHILS # (AUTO) 4.6 (2.1-6.9); NEUTROPHILS % 73.7 % (38.7-80.0); PLATELET COUNT 228 x10e3/uL (140-360); RED BLOOD COUNT 3.83 x10e6/uL (4.3-5.7); RED CELL DISTRIBUTION WIDTH 12.9 % (11.7-14.4)
[2018-10-05 05:54] LABS: ANION GAP 11.4 mmol/L (8-16); BLOOD UREA NITROGEN 13 mg/dL (7-26); BUN/CREATININE RATIO 17 (6-25); CALCIUM 8.4 mg/dL (8.4-10.2); CARBON DIOXIDE 22 mmol/L (22-29); CHLORIDE 107 mmol/L (98-107); CREATININE, SERUM 0.76 mg/dL (0.72-1.25); EST GLOMERULAR FILTRATION RATE > 60 ML/MIN (60-); GLUCOSE 94 mg/dL (74-118); POTASSIUM 4.4 mmol/L (3.5-5.1); SODIUM 136 mmol/L (136-145)
--- NOTE | 2018-10-05 07:05 | NUR ---
RCD PT AT BED PT IS ALERT AND ORIENTED RESTING ON BED NO SIGNS OF ANY DISTRESS NOTED IV PATENT BED LOW AND LOCKED CALL LIGHT IN REACH
[2018-10-05] MEDS: COLLAGENASE 5 GM TUBE TOP SCH (09:00)
[2018-10-05] MEDS: TELMISARTAN 40 MG TAB PO SCH (09:00)
[2018-10-05] MEDS: ASPIRIN 81 MG ENTERIC COATED PO SCH (09:00)
--- NOTE | 2018-10-05 09:24 | Diagnostic Imaging Report ---
MRI of the left foot with and without contrast. History: Osteomyelitis. Ulcer under the great toe. Decreased range of motion. Technique: Multiplanar multisequence MRI of the left foot with and without intravenous contrast. 20 cc IV gadolinium contrast material was administered Comparison: None Findings: Abnormal soft tissue edema with skin thickening/ulceration and abnormal contrast enhancement centered at the level of the great toe interphalangeal joint. There is associated abnormal bone marrow edema and cortical destruction involving the majority of the proximal phalanx of the great toe and a large portion of the distal phalanx of the great toe. This is consistent with osteomyelitis. There is an abnormal effusion at the great toe interphalangeal joint. This is consistent with septic arthritis. No well-formed drainable fluid collection/abscess is seen at this time. Fluid signal intensity and abnormal contrast enhancement is seen projecting along the course of the flexor tendon to the great toe. This is best seen on postcontrast image 7 series 11. This is worrisome for infectious tenosynovitis. The first metatarsal appears to be uninvolved. There is a small effusion at the first metatarsophalangeal joint which could be reactive. Scattered degenerative changes are seen about the remaining visualized osseous structures. No acute fracture, dislocation or evidence of avascular necrosis. There is diffuse muscle atrophy. No ligamentous or tendon tear is seen. The visualized neurovascular bundles are intact. Impression: Findings consistent with cellulitis, skin ulceration and osteomyelitis with associated septic arthritis involving the great toe as described above. No well-formed drainable fluid collection/abscess is seen. Additionally, there are findings worrisome for infectious tenosynovitis involving the flexor tendon to the great toe. Signed by: Dr. Arnold Carrera M.D. on 10/05/2018 9:20 AM
--- NOTE | 2018-10-05 12:06 | Progress Note ---
DATE: 10/05/2018 Medicine Progress Note SUBJECTIVE: The patient is doing well today with no complaints. No overnight events. His venous Doppler of the left lower extremity was found to be negative for DVT. PHYSICAL EXAMINATION: VITAL SIGNS: Temperature 97.5, pulse 74, respiratory rate is 20, blood pressure is 144/69, pulse ox 97% on room air. GENERAL: Not in acute distress. Alert and oriented x3. Cooperative on examination. HEENT: Head; normocephalic, atraumatic. Eyes; pupils are equal, round, and reactive to light bilaterally. Extraocular movements intact bilaterally. Throat; no evidence of erythema or exudates in the posterior pharynx. Has poor dentition. NECK: Supple. Good range of motion. PULMONARY: Clear to auscultation bilaterally. No wheezing, no rales, no rhonchi, no crackles appreciated. CARDIOVASCULAR: Positive S1 and S2. No murmurs, rubs, or gallops appreciated. ABDOMEN: Soft, nondistended, and nontender to palpation. Bowel sounds present. MUSCULOSKELETAL: Strength is 5/5 throughout. No evidence of any muscle deficits on examination. No weakness appreciated. NEUROLOGIC: Cranial nerve II through XII grossly intact. No evidence of any neurological deficits on exam. SKIN: Intact. Warm to touch. Good cap refill. PSYCHIATRIC: Normal affect and mood. EXTREMITIES: No edema. Good range of motion throughout. LABORATORY DATA: Lab findings show white count was 6.2, hemoglobin 10.7, hematocrit 33.7, platelets of 228. Chemistries reviewed and stable. MRI of the left foot shows findings consistent with cellulitis, skin ulceration, osteomyelitis with associated septic arthritis involving the great toe as described above. A well-deformed drainable fluid collection is seen. In addition, there are findings worrisome for infectious tenosynovitis involving the flexor tendon to the great toe. Venous Doppler was found to be negative for any DVT. IMPRESSION: 1. Left big toe wound infection, found to be osteomyelitis and tenosynovitis found on MRI findings. 2. Idiopathic peripheral neuropathy. 3. Hypertension. 4. History of right foot toe amputations due to peripheral neuropathy and infections in the past. 5. Left lower extremity swelling negative for deep vein thrombosis on venous Doppler. PLAN: At this time he has a PICC line. MRI of the foot noted. Continue with IV antibiotics for now. Local wound care. We will see if Podiatry needs to come see him further. There is no evidence of any fluid collection or any abscess seen on MRI. Discussed case with ID. We will do outpatient IV antibiotic therapy. I feel like the patient should be here at least 2 to 3 more days at least through the weekend to continue with IV antibiotic therapy to see if this will help his foot and then after that he can get his antibiotic I believe will be set up through Dr. Ricci's office. Otherwise, we will continue same plan of care. No changes at this time. MD ADAMA Boudreaux/ALIYAH /[id number]
[2018-10-05] MEDS ORDERED: POVIDONE IODINE 10% 120 ML BTL EXT PRN (13:30)
--- NOTE | 2018-10-05 14:32 | Consultation ---
DATE OF CONSULTATION: CHIEF COMPLAINT: Left big toe osteomyelitis. CHIEF COMPLAINT AND HISTORY OF CHIEF COMPLAINT: Mr. Villarreal is most pleasant 52-year-old gentleman, who has a history of hypertension only. He denies a history of diabetes. He apparently has been concerned with infection in his left hallux. He states he has already been through two rounds of IV antibiotics with local wound care and debridements to the left hallux as well as skin grafting to the left hallux, all of which have failed to resolve his issues. He is here today with an open draining wound, left hallux with ascending cellulitis covering the entirety of his left foot and distal leg. He also has a wound on the right foot lateral aspect, which he states unattempted skin flap and graft had been performed in the area, although improved has not fully healed. REVIEW OF SYSTEMS: Otherwise, negative. He specifically denies history of chest pain, nausea, dizziness, or vomiting. Denies history of fever. He did admit to feeling somewhat queasy on admission from the ER, but states he is better now. ALLERGIES: HE LISTS ARE LISINOPRIL ONLY. CURRENT MEDICATIONS: He takes none at home and is currently on IV antibiotics while in-house. PAST MEDICAL HISTORY: Does include osteomyelitis of the lesser digits of the right foot. He has had amputations of digits two, three, and four on the right side. He has an open wound, which is fairly small and granular on the plantar lateral aspect of the right foot. This wound measures approximately 2 cm in circumference and he states is improving. The left foot has not had amputations, but has had multiple surgical procedures on the plantar ulcer including two rounds of IV antibiotics, he states he has had four rounds of IV antibiotics all inclusive for the right side osteomyelitis when those toes were amputated and twice on the left foot, most recently, completed in July. FAMILY HISTORY: Positive for hypertension as well as diabetes. SOCIAL HISTORY: The patient denies drug use or alcohol. 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 He states it is difficult for him to take time off. PHYSICAL EXAMINATION: EXTREMITIES: Physical evaluation of lower extremity, vascular status; the patient has palpable pedal pulses, dorsalis pedis on the right and the left the pulses are deep to edema, but all digits appear to be a perfusing appropriately. NEUROLOGICALLY: He appears to have a loss of protective sensation as evidenced by [place] monofilament testing. This is an idiopathic neuropathy without diabetes or endocrine disorder as yet undiagnosed. DERMATOLOGICAL: The patient has hyperkeratotic tissue on the right foot with a 2 cm ulcer plantar aspect, 2 cm x 1.5 cm x 0.5 cm deep, this is granular in nature and is above 4th metatarsal remnant, it appears that has been resected surgically. The hallux and 5th digit remain, but all lesser digits have been amputated two, three, and four with apparent partial metatarsal amputations as well by clinical exam. The left foot has chronic ulceration, sub hallux quite large. The hallux is at least two times its normal size when compared to the right hallux, and the underlying ulcer is immediately underlying the interphalangeal joint level, it measures approximately 3 cm in circumference and is 1 cm deep to central cord of granular bed actually tracks to the joint with exposed bone on probing. There is redness, swelling, and drainage from the wound and it extends into the dorsum of the foot all the way up into the anterior leg. MUSCULOSKELETAL: As mentioned above on the right foot with multiple amputations present. Musculoskeletal evaluation on the left lower extremity includes the aforementioned ulceration. IMAGING: The MRI report is positive for cellulitis, skin ulceration, osteomyelitis, septic arthritis involving the great toe. There is no well-formed drainable fluid collection or abscess. However, there is an infectious tenosynovitis involving the flexor tendon of the great toe. With no dressing on the patient flexes, the hallux, there is an expression of clear serous fluid from the joint and flexor tendon area indicating a contiguous spread. DIAGNOSES: Osteomyelitis with septic arthritis and ascending cellulitis including flexor tendon infectious tenosynovitis. PLAN: This patient does need debridement and amputation of the left hallux. A randolph discussion ensued with the patient and family members present in the room. At this point, he will consider his options; however, he is not sure he is ready to commit to amputation. He is willing to undergo 6 to 8 weeks of IV antibiotics. However, he is concerned about the healing time from the amputation, debridement, and subsequent healing. He will be considering his options over the weekend, while we allow the IV antibiotics to reduce some of the cellulitis present. I will follow with him next week to check his progress and see if he would like to pursue amputation and further debridement. At this point, the wound is clean and clear on the exterior surface and additional bedside debridement would not be particularly beneficial. He stated that he saw his regular heat treat supervisor and had the wound debrided just several days ago and this is evident. REJI Chiu/ALIYAH /[id number]
[2018-10-05] MEDS: ENOXAPARIN SOD INJ 40 MG/0.4 ML SYR SC SCH (16:27)
--- NOTE | 2018-10-05 18:44 | NUR ---
PT RESTING ON BED BED SIDE REPORT GIVEN TO ONCOMING NURSE
--- NOTE | 2018-10-05 19:00 | NUR ---
RECEIVED PATIENT IN BEDSIDE REPORT. PATIENT RESTING IN BED AT THIS TIME. NO PAIN REPORTED. NO S&S OF DISTRESS NOTED. BED LOCKED IN LOWEST POSITION, SIDE RAILS UPX2, CALL LIGHT IN REACH.
[2018-10-05] MEDS ORDERED: DIPHENHYDRAMINE HCL 25 MG CAP PO PRN (20:15)
--- NOTE | 2018-10-05 20:15 | NUR ---
PATIENT REPORTS ITCHINESS AND A RASH TO BACK, WHICH HE REPORTS HAS HAPPENED BEFORE WHEN RECEIVING CUBICIN IV. SPOKE WITH MD WADDELL, NEW ORDERS RECEIVED.
--- NOTE | 2018-10-05 20:19 | NUR ---
SILVIA CARRILLO CONCERNING ITCHY RASH ON PATIENT'S BACK, REPORTS D/T IV ABX. AWAITING CALL BACK. Addendum: 10/05/18 at 2035 by Jayne Sequeira RN TINO SMYTH RETURNED CALL. ORDERS TO HOLD CUBICIN, CONTINUE WITH MERREM. WILL SEE HIM TOMORROW. Addendum: 10/05/18 at 2041 by Jayne Sequeira RN TINO SMYTH CALLED BACK. STOP BOTH CURRENT IVABX, NEW ORDERS RECEIVED AND ENTERED.
[2018-10-05] MEDS ORDERED: CEFEPIME 1GM/NS 0.9% 50 ML 50 ML IV SCH (22:00)
[2018-10-05] MEDS ORDERED: LINEZOLID 600 MG/D5W 300ML 300 ML IV SCH (22:30)
[2018-10-06] VITALS (8 sets, daily range): BP systolic 143–172; BP diastolic 65–98
[2018-10-06] MEDS: SODIUM CHLORIDE 0.9% 1000ML 1,000 ML IV SCH (06:05)
[2018-10-06] MEDS: ASPIRIN 81 MG ENTERIC COATED PO SCH (08:09)
[2018-10-06] MEDS: COLLAGENASE 5 GM TUBE TOP SCH (08:10)
[2018-10-06] MEDS: TELMISARTAN 40 MG TAB PO SCH ×2 (08:10→20:57)
[2018-10-06] MEDS: SODIUM CHLORIDE 0.9% IV SCH (12:04)
[2018-10-06] MEDS: DAPTOMYCIN IV SCH (12:04)
[2018-10-06] MEDS: MEROPENEM 500MG/ NS 50ML 50 ML IV SCH ×2 (13:43→22:02)
--- NOTE | 2018-10-06 14:51 | Progress Note ---
DATE: 10/06/2018 Medicine Progress Note SUBJECTIVE: The patient is currently doing well with no complaints. He did see Podiatry on yesterday, Dr. Narayanan and he recommended him needing a debridement and amputation of the left hallux of the toe. The patient does not seem to be interested at this time. He wants to see a different specialist and get a second opinion. We are waiting on the arterial Doppler results. He is still on IV antibiotics. He did have a rash yesterday concerning for daptomycin, given some Benadryl, but they restarted back his daptomycin again. PHYSICAL EXAMINATION: VITAL SIGNS: Temperature is 97.8, pulse 67, respiratory rate is 18, blood pressure 147/65, and pulse ox 97% on room air. GENERAL: Not in acute distress. Alert and oriented x3. Cooperative on examination. HEENT: Head, normocephalic and atraumatic. Eyes, pupils are equal, round, and reactive to light bilaterally. Extraocular movements are intact bilaterally. Throat; no evidence of erythema or exudates in the posterior pharynx. Has poor dentition. NECK: Supple. Good range of motion. PULMONARY: Clear to auscultation bilaterally. No wheezing, no rales, and no rhonchi. No crackles appreciated. CARDIOVASCULAR: Positive S1 and S2. No murmurs, rubs, or gallops appreciated. ABDOMEN: Soft, nondistended, and nontender to palpation. Bowel sounds present. MUSCULOSKELETAL: Strength is 5/5 throughout. No evidence of any muscle deficits on examination. No weakness appreciated. NEUROLOGICAL: Cranial nerves II through XII grossly intact. No evidence of any neurological deficits on exam. SKIN: Intact. Warm to touch. Good cap refill. PSYCHIATRIC: Normal affect and mood. EXTREMITIES: He does have some edema in the left lower extremity, but negative for DVT on venous Doppler. Good range of motion throughout. LAB FINDINGS: Show white count 6.2, hemoglobin 10.7, hematocrit 34, and platelets of 228. Chemistry; sodium 136, potassium 4.4, chloride 107, bicarb 22, anion gap of 11.8, BUN 13, and creatinine is 0.76. IMAGING STUDIES: Arterial Dopplers pending. IMPRESSION: 1. Left big toe infection with osteomyelitis and tenosynovitis found on the MRI findings. 2. Idiopathic peripheral neuropathy. 3. Hypertension. 4. History of right foot toe amputations due to peripheral neuropathy and infections in the past. 5. Left lower extremity swelling negative for deep vein thrombosis on venous Doppler. PLAN: At this time, the patient wants to continue antibiotics and he is going to follow up with [facility] on Monday for second opinion by different doctor. He does not want to perform any procedure here at this facility. We are going to continue with aggressive IV antibiotics for now. He will scrap picker his antibiotics on Monday at Dr. Ricci's office once he finishes and increase his antibiotic tomorrow. I still have an arterial Doppler, which is still pending on its results. Otherwise, we will continue with same plan of care and monitor very closely with the consultants. What is still pending is an arterial Doppler, finishing his antibiotics for tomorrow, discharge, and will scrap picker antibiotics on Monday and follow up with a new orthopedic doctor or group leader on Monday at [facility]. MD ADAMA Boudreaux/ALIYAH /[id number]
[2018-10-06] MEDS: ENOXAPARIN SOD INJ 40 MG/0.4 ML SYR SC SCH (16:37)
[2018-10-07] MEDS: SODIUM CHLORIDE 0.9% 1000ML 1,000 ML IV SCH (00:02)
[2018-10-07 00:09] VITALS: BP 153/81
[2018-10-07 04:14] VITALS: BP 145/91
[2018-10-07 05:14] LABS: BASOPHILS % 0.4 % (0.0-1.0); EOSINOPHILS # (AUTO) 0.2 (0.0-0.4); EOSINOPHILS % 3.3 % (0.0-6.0); HEMATOCRIT 34.5 % (38.2-49.6); HEMOGLOBIN 11.1 g/dL (14.0-18.0); LYMPHOCYTES # (AUTO) 1.3 (1.0-3.2); LYMPHOCYTES % 24.5 % (18.0-39.1); MEAN CORPUSCULAR HEMOGLOBIN 27.8 pg (28-32); MEAN CORPUSCULAR HGB CONC 32.2 g/dL (31-35); MEAN CORPUSCULAR VOLUME 86.3 fL (81-99); MONOCYTES # (AUTO) 0.3 (0.2-0.8); MONOCYTES % 6.7 % (4.4-11.3); NEUTROPHILS # (AUTO) 3.3 (2.1-6.9); NEUTROPHILS % 64.5 % (38.7-80.0); PLATELET COUNT 266 x10e3/uL (140-360); RED CELL DISTRIBUTION WIDTH 12.7 % (11.7-14.4)
[2018-10-07 05:44] LABS: ANION GAP 13.6 mmol/L (8-16); BLOOD UREA NITROGEN 12 mg/dL (7-26); BUN/CREATININE RATIO 15 (6-25); CALCIUM 8.7 mg/dL (8.4-10.2); CARBON DIOXIDE 25 mmol/L (22-29); CHLORIDE 105 mmol/L (98-107); CREATININE, SERUM 0.81 mg/dL (0.72-1.25); EST GLOMERULAR FILTRATION RATE > 60 ML/MIN (60-); GLUCOSE 83 mg/dL (74-118); POTASSIUM 4.6 mmol/L (3.5-5.1); SODIUM 139 mmol/L (136-145)
[2018-10-07] MEDS: MEROPENEM 500MG/ NS 50ML 50 ML IV SCH ×2 (05:58→11:30)
--- NOTE | 2018-10-07 07:48 | NUR ---
Report given to oncoming nurse Tia, walking round done.
[2018-10-07 08:22] VITALS: BP 152/79
[2018-10-07] MEDS: TELMISARTAN 40 MG TAB PO SCH (09:28)
[2018-10-07] MEDS: ASPIRIN 81 MG ENTERIC COATED PO SCH (09:28)
[2018-10-07 09:30] VITALS: BP 152/79
[2018-10-07] MEDS: DAPTOMYCIN IV SCH (10:08)
[2018-10-07] MEDS: SODIUM CHLORIDE 0.9% IV SCH (10:08)
[2018-10-07] MEDS: COLLAGENASE 5 GM TUBE TOP SCH (11:00)
[2018-10-07 11:38] VITALS: BP 154/72
--- NOTE | 2018-10-07 20:31 | Discharge Summary ---
FINAL DISCHARGE DIAGNOSES: 1. Left big toe osteomyelitis with tenosynovitis, found on MRI findings. 2. Idiopathic peripheral neuropathy. 3. Hypertension. 4. 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 5. Left lower extremity swelling, negative for deep vein thrombosis and venous Doppler, negative arterial Doppler. CONSULTANTS: Podiatry and Infectious Disease. PHYSICAL EXAMINATION: VITAL SIGNS: Temperature is 96.4, pulse 60, respiratory rate is 18, blood pressure 152/79, and pulse ox 98% on room air. LAB FINDINGS: Show white count is 5.1, hemoglobin is 11.1, hematocrit is 34.5, platelets of 266. Chemistry; sodium 139, potassium 4.6, chloride 105, bicarb 25, anion gap of 13, BUN is 12, creatinine is 0.81, glucose is 83, calcium is 8.7. LFTs within normal range. CRP is 117, total protein 6.6, albumin 3.3. IMAGING STUDIES: He had a PICC line placed. He had a venous Doppler of the lower extremity that showed no evidence of any DVT. MRI of the foot shows findings consistent with cellulitis, skin ulceration, osteomyelitis with associated septic arthritis involving the great toe as described above. No well formed drainable fluid collection or abscess is seen. Additionally, there are findings worrisome for infectious tenosynovitis involving the flexor tendon to the great toe. There was an arterial lower extremity Doppler of the left leg that showed color duplex evaluation of left lower extremity arteries, waveforms demonstrated normal flow and no evidence of peripheral vascular disease. HOSPITAL COURSE: This is a 52-year-old male, morbidly obese. He reports having idiopathic peripheral neuropathy in the past, has had multiple wound infections in his feet. He presented as [facility] direct [facility] due to concerns of the left big toe infection, needing IV antibiotic therapy. While here, ID was consulted. PICC line was placed. He was started on IV daptomycin and Merrem. MRI of the foot was consistent with tenosynovitis as well as osteomyelitis, requiring Dr. Narayanan, Podiatry to come and evaluate him. He recommended need to debridement and amputation of the left hallux, and further clean up on the left foot, but the patient was reluctant and instead did not want to pursue any interventions or procedures at this facility. Him and his has made an appointment with [facility] in [facility] to be further evaluated and have a second opinion per their wishes. The patient will continue with IV antibiotics for a total of 6-[address] Ricci, Infectious Disease, which is currently being arranged in his office and which he was to [employer] tomorrow on 10/08/2018 at 2 p.m. in his office. At this time, since the patient does not want any interventions here at this facility and wants a second opinion, he has been cleared by Podiatry and he has also been cleared by Infectious Disease to be discharged to home. He did have an arterial Doppler of the left lower extremity, which had normal flow and no evidence of any stenosis. Venous left lower extremity Doppler, which was negative for any DVTs. At this time, he has been cleared for discharge by all consultants. He did receive antibiotics prior to discharge to home. I answered all his questions at bedside with the nurse present and he verbalized understanding. He understands the plan of care and he will follow up accordingly with the appropriate consultants as described above. On the day of discharge, vital signs were stable, labs reviewed and stable. The patient was seen, evaluated, examined thoroughly on the day of discharge. No other complaints. The patient verbalized understanding and agrees to plan of care to follow up accordingly as an outpatient with the primary care physician in 1 week, Infectious Disease tomorrow at 2 p.m. to [employer] antibiotics on 10/08/2018 and tomorrow for second opinion at [facility] in the [facility] as per their wishes. MEDICATIONS: See [facility] reconciliation form. DISPOSITION: Home. CONDITION: Stable. DIET: Heart healthy. In the event of any worsening symptoms, the patient was advised to come back to the ED for further evaluation. Discharge summary took greater than 35 minutes. MD ADAMA Boudreaux/ALIYAH /[id number]
== END 2018-10-07 12:11 | disposition home or self-care (01) | DRG 549 ==
LOC: IMCU 20:23 → OBSVTOIN 10-04 13:45 → MED/SURG2 10-04 16:41
PROVIDERS: ADMIT Internal Medicine; ATTEND Internal Medicine
PROC: 02HV33Z Insertion of Infusion Device into Superior Vena Cava, Percutaneous Approach (ICD-10-PCS; principal; 2018-10-04)
DX: M00.9 Pyogenic arthritis, unspecified (principal); M86.8X7 Other osteomyelitis, ankle and foot; M65.9 Synovitis and tenosynovitis, unspecified; Z79.4 Long term (current) use of insulin; G60.9 Hereditary and idiopathic neuropathy, unspecified; Z89.421 Acquired absence of other right toe(s); I10 Essential (primary) hypertension; Z53.29 Procedure and treatment not carried out because of patient's decision for other reasons
CPT/HCPCS: 36415; 36569; 71045; 80048; 80053; 85025; 85651; 86140; 93926; 93970; G0378; J0692; J1650; J2020; J7030

== ENCOUNTER → 2023-10-17 | Outpatient (REF) | payer BC ==
[~2023-10-17] MED LIST: ASPIRIN EC81 MG PO; MICARDIS40 MG PO
== END ==
LOC: DX 11:29
PROVIDERS: ATTEND Internal Medicine Infectious Disease
DX: M86.271 Subacute osteomyelitis, right ankle and foot (principal)
CPT/HCPCS: 36569; 71045